=== PATIENT | male | born 1965 | race Caucasian/White ===

== ENCOUNTER 2020-02-04 20:30 | Outpatient (CLI) | payer OTHER | END 2020-02-04 20:31 | disposition home or self-care (01) | LOC: SLEEPLAB 20:30 | PROVIDERS: ATTEND Family Medicine | DX: G47.33 Obstructive sleep apnea (adult) (pediatric) (principal); R53.83 Other fatigue; R06.83 Snoring | CPT/HCPCS: 95811 ==

== ENCOUNTER 2020-09-02 13:50 | Outpatient (CLI) | payer OTHER ==
--- NOTE | 2020-09-02 16:18 | ULT ---
SOFT TISSUE ULTRASOUND: 09/02/20 INDICATION: Ultrasound requested to assess palpable mass right posterior shoulder above scapula. FINDINGS: Directed ultrasound performed at site of concern. There is an oblong shaped hypoechoic circumscribed mass in the subcutaneous tissues measuring 3.0 x 3 .0 x 1.0 cm IMPRESSION: Hypoechoic circumscribed mass in the subcutaneous tissues at site of concern. Character of this mass is indeterminate by ultrasound. Lipoma cannot be confirmed. CT or MRI could be performed to assess ti ssue characteristics as clinically indicated. POS: [facility]
== END 2020-09-02 13:51 | disposition home or self-care (01) ==
LOC: SCSULT 13:50
PROVIDERS: ATTEND Family Medicine
DX: R22.9 Localized swelling, mass and lump, unspecified (principal)
CPT/HCPCS: 76999